=== PATIENT | female | born 2000 | race Caucasian/White ===

== ENCOUNTER 2022-05-12 12:59 | Emergency (ER) | payer OTHER ==
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
[2022-05-12 13:36] VITALS: BP 110/78; PULSE 88; RESP 18; TEMP 98.3
[2022-05-12] MEDS ORDERED: DEXTROSE 50% SYRINGE 50 ML IVP PRN ×2 (13:42)
[2022-05-12 14:00] LABS: Glucose,Whole Blood 189 mg/dL (70-110)
[2022-05-12] MEDS ORDERED: INSULIN ASPART (NovoLOG) 100 UNIT/ML VIAL SQ SCH (17:30)
[2022-05-12 17:38] LABS: Glucose,Whole Blood 154 mg/dL (70-110)
== END 2022-05-12 19:57 | disposition home or self-care (01) ==
LOC: EC 12:59
DX: Z13.30 Encounter for screening examination for mental health and behavioral disorders, unspecified (principal); Z88.1 Allergy status to other antibiotic agents; Z88.0 Allergy status to penicillin
CPT/HCPCS: 36415; 82075; 99284; 99285

== ENCOUNTER 2023-06-24 13:08 | Emergency (ER) | payer OTHER ==
--- NOTE | 2023-06-24 13:46 | ED ---
General Adult HPI - General Source: patient, RN notes reviewed Mode of arrival: ambulatory Limitations: no limitations <Mio Valdes - Last Filed: 06/24/23 13:45> <Ashli Quezada - Last Filed: 06/24/23 16:51> - General Stated complaint: Abd Pain Time Seen by Provider: 06/24/23 13:45 - History of Present Illness Initial comments: 22-year-old female presents emergency Department chief complaint of bilateral rib pain, cough congestion. Patient states she's been sick for last several days. She states that she's had multiple sick contacts. Possible fever no abdominal complaints (Mio Valdes) Patient is a 22-year-old female presented ER with chief complaint of rib pain and cough. Patient states for the past couple of days she's been having congestion, cough, bilateral lower ribs pain. Patient also is endorsing calf pain and she has cerebral palsy and believes it is due to her illness. Also, states a friend has also been sick lately. Patient denies any difficulty breathing, chest pain, fevers, chills, night sweats. (Ashli Quezada) - Related Data Home Medications Medication Instructions Recorded Confirmed Insulin Aspart (For Pump) [NovoLOG 0.01 unit SQ-PUMP CONTINUOUS 05/12/22 05/12/22 (For Pump)] Levothyroxine Sodium [Synthroid] 112 mcg PO DAILY 05/12/22 05/12/22 Sertraline [Zoloft] 50 mg PO DAILY 05/12/22 05/12/22 guanFACINE HCL [guanFACINE HCL ER] 2 mg PO DAILY 05/12/22 05/12/22 Previous Rx's Medication Instructions Recorded Albuterol Inhaler [Ventolin Hfa 1 - 2 puff INHALATION Q6H PRN #1 06/24/23 Inhaler] each Allergies Allergy/AdvReac Type Severity Reaction Status Date / Time amoxicillin [From Augmentin] Allergy Anaphylaxis Verified 06/24/23 14:15 clavulanic acid Allergy Anaphylaxis Verified 06/24/23 14:15 [From Augmentin] Review of Systems ROS Other: All systems not noted in ROS Statement are negative. <Mio Valdes - Last Filed: 06/24/23 13:45> ROS Other: All systems not noted in ROS Statement are negative. <Ashli Quezada - Last Filed: 06/24/23 16:51> ROS Statement: Those systems with pertinent positive or pertinent negative responses have been documented in the HPI. Past Medical History Past Medical History: Diabetes Mellitus, Thyroid Disorder Additional Past Medical History / Comment(s): Cerebral Palse History of Any Multi-Drug Resistant Organisms: None Reported Past Surgical History: No Surgical Hx Reported Smoking Status: Never smoker Past Alcohol Use History: None Reported Past Drug Use History: None Reported <Mio Valdes - Last Filed: 06/24/23 13:45> General Exam <Mio Valdes - Last Filed: 06/24/23 13:45> General appearance: alert, in no apparent distress Head exam: Present: atraumatic, normocephalic, normal inspection ENT exam: Present: normal exam, normal oropharynx, mucous membranes moist, TM's normal bilaterally Neck exam: Present: normal inspection. Absent: tenderness, meningismus, lymphadenopathy Respiratory exam: Present: normal lung sounds bilaterally. Absent: respiratory distress, wheezes, rales, rhonchi, stridor Cardiovascular Exam: Present: regular rate, normal rhythm, normal heart sounds. Absent: systolic murmur, diastolic murmur, rubs, gallop, clicks Neurological exam: Present: alert, oriented X3, CN II-XII intact Psychiatric exam: Present: normal affect, normal mood Skin exam: Present: warm, dry, intact, normal color. Absent: rash <Ashli Quezada - Last Filed: 06/24/23 16:51> - General Exam Comments Initial Comments: Visual Physical Exam Vital signs reviewed General: Well-appearing, nontoxic, no acute distress. Head: Normocephalic, atraumatic Eyes: PERRLA, EOMI ENT: Airway patent Chest: Nonlabored breathing Skin: No visual rash, normal skin tone Neuro: Alert and oriented 3 Musculoskeletal: No gross abnormalities (Mio Valdes) Course Vital Signs 06/24/23 14:15 Temperature 98.8 F Pulse Rate 93 Respiratory 16 Rate Blood Pressure 113/78 O2 Sat by Pulse 97 Oximetry Medical Decision Making <Mio Valdes - Last Filed: 06/24/23 13:45> - Radiology Data Radiology results: report reviewed, image reviewed <Ashli Quezada - Last Filed: 06/24/23 16:51> - Medical Decision Making I completed the quick note portion of this chart signed Mio Valdes PA-C (Mio Valdes) Was pt. sent in by a medical professional or institution (BRITATNY Todd, RESPIRATORY THERAPY MANAGER, urgent care, hospital, or penitentiary...) When possible be specific @ -No Did you speak to anyone other than the patient for history (EMS, parent, family, police, friend...)? What history was obtained from this source @ -No Did you review nursing and triage notes (agree or disagree)? Why? @ -I reviewed and agree with nursing and triage notes Were old charts reviewed (outside hosp., previous admission, EMS record, old EKG, old radiological studies, urgent care reports/EKG's, penitentiary records)? Report findings @ -No old charts were reviewed Differential Diagnosis (chest pain, altered mental status, abdominal pain women, abdominal pain men, vaginal bleeding, weakness, fever, dyspnea, syncope, headache, dizziness, GI bleed, back pain, seizure, CVA, palpatations, mental health, musculoskeletal)? @ -COVID-19, RSV, influenza, pneumonia, viral sinusitis EKG interpreted by me (3pts min.). @ -None X-rays interpreted by me (1pt min.). @ -Chest x-ray interpreted by me shows no acute cardiopulmonary process. CT interpreted by me (1pt min.). @ -None done U/S interpreted by me (1pt. min.). @ -None done What testing was considered but not performed or refused? (CT, X-rays, U/S, labs)? Why? @ -None What meds were considered but not given or refused? Why? @ -None Did you discuss the management of the patient with other professionals (professionals i.e. BRITTANY Todd, RESPIRATORY THERAPY MANAGER, lab, RT, psych nurse, pediatric social worker, booking clerk, teacher, nuclear medicine officer, foster care case manager)? Give summary @ -No Was smoking cessation discussed for >3mins.? @ -No Was critical care preformed (if so, how long)? @ -No Were there social determinants of health that impacted care today? How? ([place] elessness, low income, unemployed, alcoholism, drug addiction, transportation, low edu. Level, literacy, decrease access to med. care, prison, rehab)? @ -No Was there de-escalation of care discussed even if they declined (Discuss DNR or withdrawal of care, Hospice)? DNR status @ -No What co-morbidities impacted this encounter? (DM, HTN, Smoking, COPD, CAD, Cancer, CVA, ARF, Chemo, Hep., AIDS, mental health diagnosis, sleep apnea, morbid obesity)? @ -Cerebral palsy Was patient admitted / discharged? Hospital course, mention meds given and route, prescriptions, significant lab abnormalities, going to OR and other pertinent info. @ -Discharge. Vital stable. Viral swabs obtained in the ER were significant for influenza A. Chest x-ray interpreted by me shows no acute process. I discussed lab and imaging findings with patient. Patient was prescribed albuter ol inhaler due to asthma. I instructed her to use [id number] Tylenol and Motrin for fever and symptom control. Return parameters were discussed. Patient will be discharged in stable condition with follow-up to PCP. Patient expressed understanding and agreement with care plan. Undiagnosed new problem with uncertain prognosis? @ -No Drug Therapy requiring intensive monitoring for toxicity (Heparin, Nitro, Insulin, Cardizem)? @ -No Were any procedures done? @ -No Diagnosis/symptom? @ -Influenza A Acute, or Chronic, or Acute on Chronic? @ -Acute Uncomplicated (without systemic symptoms) or Complicated (systemic symptoms)? @ -Uncomplicated Side effects of treatment? @ -No Exacerbation, Progression, or Severe Exacerbation? @ -No Poses a threat to life or bodily function? How? (Chest pain, [place], [place], pneumonia, PE, COPD, DKA, ARF, appy, cholecystitis, CVA, Diverticulitis, Homicidal, Suicidal, threat to staff... and all critical care pts) @ -No (Ashli Quezada) - Lab Data Lab Results 06/24/23 Range/Units 15:15 Influenza Type A (PCR) Detected A (Not Detectd) Influenza Type B (PCR) Not Detected (Not Detectd) RSV (PCR) Not Detected (Not Detectd) SARS-CoV-2 (PCR) Not Detected (Not Detectd) Disposition <Mio Valdes - Last Filed: 06/24/23 13:45> Is patient prescribed a controlled substance at d/c from ED?: No Time of Disposition: 16:46 <Ashli Quezada - Last Filed: 06/24/23 16:51> Clinical Impression: Influenza A Disposition: HOME SELF-CARE Condition: Stable Additional Instructions: Use [id number] Tylenol and Motrin for fever and symptom control. Please return to the ER for any new or worsening symptoms. Prescriptions: Albuterol Inhaler [Ventolin Hfa Inhaler] 1 - 2 puff INHALATION Q6H PRN #1 each PRN Reason: Shortness Of Breath Referrals: Sky Soares MD [Primary Care Provider] - 1-2 days
--- NOTE | 2023-06-24 13:53 | XR ---
EXAMINATION TYPE: XR chest 2V DATE OF EXAM: 06/24/2023 COMPARISON: 13 October 2004 INDICATION: Pain TECHNIQUE: Frontal and lateral views of the chest are obtained. FINDINGS: The heart size is normal. The pulmonary vasculature is normal. The lungs are clear. Some mild scoliosis lower thoracic spine. IMPRESSION: 1. No acute pulmonary process.
[2023-06-24 14:22] VITALS: TEMP 98.8
[2023-06-24 17:04] VITALS: BP 122/68; PULSE 77; RESP 20
== END 2023-06-24 16:55 | disposition home or self-care (01) ==
LOC: EC 13:08
DX: J10.1 Influenza due to other identified influenza virus with other respiratory manifestations (principal); E11.9 Type 2 diabetes mellitus without complications; E07.9 Disorder of thyroid, unspecified; Z79.4 Long term (current) use of insulin; Z79.890 Hormone replacement therapy; Z88.0 Allergy status to penicillin; Z88.8 Allergy status to other drugs, medicaments and biological substances; Z20.822 Contact with and (suspected) exposure to COVID-19
CPT/HCPCS: 71046; 87636; 99284